=== PATIENT | female | born 1970 | race Caucasian/White ===

== ENCOUNTER 2024-10-13 11:06 | Emergency (ER) | payer MEDICAID, OTHER ==
[2024-10-13] MEDS: Albuterol/Ipratropium 3.0-0.5 MG/3 ML Neb Soln NEB ONE (13:51)
== END 2024-10-13 15:00 | disposition home or self-care (01) ==
LOC: MW.ED 11:06
DX: H93.13 Tinnitus, bilateral (principal); J98.01 Acute bronchospasm; F17.200 Nicotine dependence, unspecified, uncomplicated; S02.5XXA Fracture of tooth (traumatic), initial encounter for closed fracture; X50.9XXA Other and unspecified overexertion or strenuous movements or postures, initial encounter
CPT/HCPCS: 71046; 94640; 99284; J7620; 99282; A9270-GY